=== PATIENT | male | born 1945 | race Two or more races ===

== ENCOUNTER 2023-09-30 23:26 | Emergency (ER) | payer OTHER, MEDICAID ==
[~2023-09-30] VITALS: Ht 172.7 cm; Wt 70.3 kg
[2023-09-30] MEDS ORDERED: NITROGLYCERIN OINT 1 GM PACKET TP ONE (23:50)
[2023-09-30] MEDS ORDERED: ASPIRIN 81 MG TAB.CHEW ONE (23:50)
[2023-09-30] MEDS: ASPIRIN 81 MG TAB.CHEW PO ONE (23:54)
[2023-09-30 23:55] VITALS: BP 123/63
[2023-09-30] MEDS: NITROGLYCERIN OINT 1 GM PACKET TP ONE (23:55)
[2023-09-30 23:56] LABS: BASOPHILS % (AUTO) 0.8 % (0.0-2.0); EOSINOPHILS # (AUTO) 0.1 K/uL (0.0-0.7); EOSINOPHILS % (AUTO) 1.7 % (0.0-7.0); HEMATOCRIT 40.2 % (36.7-47.1); HEMOGLOBIN 13.1 g/dL (12.5-16.3); LYMPHOCYTES # (AUTO) 2.2 K/uL (0.8-4.8); LYMPHOCYTES % (AUTO) 43.2 % (20.5-51.5); MEAN CORPUSCULAR HGB CONC 33 g/dL (32.5-36.3); MONOCYTES # (AUTO) 0.7 K/uL (0.1-1.30); MONOCYTES % (AUTO) 14.4 % (0.0-11.0); NEUTROPHILS % (AUTO) 39.9 % (38.5-71.5); PLATELET COUNT (AUTO) 192 K/uL (152-348); RED BLOOD CELL COUNT(AUTO) 4.51 MIL/uL (4.06-5.63); RED CELL DISTRIBUTION WIDTH 15.7 % (12.1-16.2)
[2023-09-30 23:57] LABS: DIFFERENTIAL COMMENT 1
[2023-10-01] MEDS ORDERED: AMLO10TA59 PO (00:04)
[2023-10-01] MEDS ORDERED: EMPA10TA PO (00:04)
[2023-10-01] MEDS ORDERED: METF-440 PO (00:04)
[2023-10-01] MEDS ORDERED: BENA10TA74 PO (00:04)
[2023-10-01 00:06] LABS: CALCIUM 9.1 mg/dL (8.5-10.1); CARBON DIOXIDE 24 mmol/L (21-32); CHLORIDE 104 mmol/L (98-107); CREATININE 1.8 mg/dL (0.6-1.3); GLUCOSE 154 mg/dL (74-106); POTASSIUM 4.1 mmol/L (3.5-5.1); SODIUM SERUM 139 mmol/L (136-145); UREA NITROGEN, BLOOD 24 mg/dL (7-18)
[2023-10-01 00:19] LABS: ALANINE AMINOTRANSFERASE 60 U/L (16-63); ALBUMIN 3.4 g/dL (3.4-5.0); ALKALINE PHOSPHATASE 57 U/L (50-136); ASPARTATE AMINOTRANSFERASE 18 U/L (15-37); BILIRUBIN,DIRECT 0.1 mg/dL (0.0-0.2); BILIRUBIN,TOTAL 0.4 mg/dL (0.2-1.0); NT-PRO BNP 68 pg/mL (0-125); TOTAL PROTEIN, SERUM 7.4 g/dL (6.4-8.2)
[2023-10-01 04:02] VITALS: O2SAT 96
== END 2023-10-01 04:15 | disposition short-term general hospital (02) ==
LOC: ER 23:29
DX: R07.89 Other chest pain (principal); R00.1 Bradycardia, unspecified; I10 Essential (primary) hypertension; E78.5 Hyperlipidemia, unspecified; Z79.899 Other long term (current) drug therapy
CPT/HCPCS: 36415; 71045; 84484; 85025; 93005; A4606; A4663